=== PATIENT | female | born 1945 | race Caucasian/White ===

== ENCOUNTER → 2018-05-02 | Outpatient (REF) | payer OTHER | LOC: M SFHCLACO 15:11 | DX: D23.61 Other benign neoplasm of skin of right upper limb, including shoulder (principal) | CPT/HCPCS: 88305 ==

== ENCOUNTER → 2021-11-21 | Outpatient (CLI) | payer MEDICARE ==
[~2021-11-21] MED LIST: ASPI81TA51 PO; COUM1TAB17 PO; COUM7.5T PO; ENAL2.5T PO; GLIM4TAB PO; HYDR12.55 PO; METF500T PO; MOM30SS PO; OXYC1TAB23 PO; PERC7.5T12 PO; POLY1POW4 PO; fenofibrate OR; thyroxine OR
== END ==
LOC: M WHC 10:02
PROVIDERS: ATTEND Orthopaedic Surgery
DX: Z13.820 Encounter for screening for osteoporosis (principal); M54.50 Low back pain, unspecified; M85.851 Other specified disorders of bone density and structure, right thigh; M85.852 Other specified disorders of bone density and structure, left thigh

== ENCOUNTER → 2021-12-01 | Outpatient (CLI) | payer MEDICARE | LOC: M RAD 10:01 | PROVIDERS: ATTEND Internal Medicine Cardiovascular Disease | DX: I65.23 Occlusion and stenosis of bilateral carotid arteries (principal); E78.2 Mixed hyperlipidemia; I10 Essential (primary) hypertension ==